=== PATIENT | male | born 1990 | race African-American/Black ===

== ENCOUNTER 2019-01-20 21:33 | Emergency (ER) | payer SELFPAY ==
[~2019-01-20] VITALS: Ht 175.3 cm; Wt 64.0 kg
[2019-01-21] MEDS ORDERED: BACITRACIN ZINC OINT UDPKT TOP ONE (00:45)
[2019-01-21] MEDS ORDERED: TETANUS, DIPHTHERIA, PERTUSSIS VAC/PF 0.5ML (>7YR OLD) IM ONE (00:45)
[2019-01-21] MEDS ORDERED: HYDROCODONE/ACETAMINOPHEN 5/325MG TABLET PO ONE (01:15)
[2019-01-21] MEDS ORDERED: ONDANSETRON 4MG ODT PO ONE (02:00)
[2019-01-21 03:43] VITALS: BP 134/84
== END 2019-01-21 03:44 | disposition home or self-care (01) ==
LOC: ER 21:33
DX: S63.501A Unspecified sprain of right wrist, initial encounter (principal); S83.91XA Sprain of unspecified site of right knee, initial encounter; S76.012A Strain of muscle, fascia and tendon of left hip, initial encounter; F12.10 Cannabis abuse, uncomplicated; K50.90 Crohn's disease, unspecified, without complications; F17.200 Nicotine dependence, unspecified, uncomplicated; V03.99XA Pedestrian with other conveyance injured in collision with car, pick-up truck or van, unspecified whether traffic or nontraffic accident, initial encounter; Y93.89 Activity, other specified; Y92.89 Other specified places as the place of occurrence of the external cause; Y99.8 Other external cause status
CPT/HCPCS: 29125; 70450; 72170; 73110; 73552; 73562; 90471; 90715; 99284; Q0162